=== PATIENT | male | born 1965 | race Hispanic/Latino ===

== ENCOUNTER 2022-05-17 16:27 | Inpatient (IN) | payer OTHER ==
[~2022-05-17] VITALS: Ht 167.6 cm; Wt 79.5 kg
[2022-05-17] MEDS ORDERED: FEXO60TA98 PO (17:23)
[2022-05-17] MEDS ORDERED: ACYC1CAP20 PO (17:23)
[2022-05-17] MEDS ORDERED: GABA-283 PO (17:23)
[2022-05-17] MEDS ORDERED: PRAZ2CAP PO (17:40)
[2022-05-17] MEDS ORDERED: CITA20TA6 PO (17:40)
[2022-05-17] MEDS ORDERED: SERT-141 PO (17:40)
[2022-05-17] MEDS ORDERED: WELLTAB40 PO (17:40)
[2022-05-17] MEDS ORDERED: ZOLP5TAB PO (17:40)
[2022-05-17] MEDS ORDERED: LORazepam 2 MG TAB PO PRN ×2 (18:25→20:05)
[2022-05-17 18:39] LABS: HEMATOCRIT 43.7 % (42.0-52.0); HEMOGLOBIN 15.1 g/dl (13.5-17.5); MEAN CORPUSCULAR HEMOGLOBIN 30.1 pg (27.0-33.0); MEAN CORPUSCULAR HGB CONC 34.6 g/dl (32.0-36.5); MEAN CORPUSCULAR VOLUME 87.2 fl (80.0-96.0); PLATELET COUNT, AUTOMATED 184 10^3/uL (150-450); RED BLOOD COUNT 5.01 10^6/uL (4.30-6.10); WHITE BLOOD COUNT 6.3 10^3/uL (4.0-10.0)
[2022-05-17 19:05] LABS: AMPHETAMINES LEVEL URINE NEGATIVE (NEGATIVE); BARBITURATES URINE NEGATIVE (NEGATIVE); BENZODIAZEPINES URINE NEGATIVE (NEGATIVE); COCAINE METABOLITE URINE NEGATIVE (NEGATIVE); METHADONE URINE NEGATIVE (NEGATIVE); OPIATES URINE NEGATIVE (NEGATIVE); PHENCYCLIDINE URINE NEGATIVE (NEGATIVE)
[2022-05-17] MEDS ORDERED: KETOROLAC 60MG 2ML VIAL IM ONE (19:05)
[2022-05-17 19:06] LABS: CANNABINOIDS URINE NEGATIVE (NEGATIVE)
[2022-05-17 19:09] LABS: ETHYL ALCOHOL (ETHANOL) 0.005 % (0.000-0.010)
[2022-05-17 19:11] LABS: ACETAMINOPHEN LEVEL < 2.0 UG/ML (10.0-20.0); SALICYLATE LEVEL < 3.0 MG/DL (<30)
[2022-05-17 19:15] LABS: ALBUMIN 4.4 G/DL (3.2-5.2); ALKALINE PHOSPHATASE 82 U/L (46-116); ALT/SGPT 33 U/L (7.0-40); AST/SGOT 37 U/L (<34); BILIRUBIN,DIRECT < 0.1 MG/DL (<0.4); BILIRUBIN,TOTAL 0.4 MG/DL (0.3-1.2); BLOOD UREA NITROGEN 22 MG/DL (9-23); CALCIUM LEVEL 9.3 MG/DL (8.5-10.1); CARBON DIOXIDE LEVEL 28 MMOL/L (20-31); CHLORIDE LEVEL 106 MMOL/L (98-107); CPK CREATINE PHOSPHOKINASE 410 U/L (46-171); GLOMERULAR FILTRATION RATE > 60.0 (>56); GLUCOSE, FASTING 96 MG/DL (60-100); POTASSIUM SERUM 4.3 MMOL/L (3.5-5.1); SODIUM LEVEL 140 MMOL/L (136-145); THYROID STIMULATING HORMONE 1.412 uIU/ML (0.55-4.78); TOTAL PROTEIN 6.9 G/DL (5.7-8.2)
[2022-05-17] MEDS ORDERED: ZOLO100T PO (19:56)
[2022-05-17] MEDS ORDERED: ALLE1TAB23 PO (19:56)
[2022-05-17] MEDS ORDERED: GABA-282 PO (19:56)
[2022-05-17] MEDS ORDERED: HOME MED LIST COMPLETE! XX SCH (20:00)
[2022-05-17] MEDS ORDERED: zolPIDEM TARTRATE 5 MG TAB PO PRN (20:05)
[2022-05-17] MEDS ORDERED: OLANZapine ORAL DISINTEGRATING TAB 5MG PO PRN (20:05)
[2022-05-17] MEDS ORDERED: NICOTINE 21MG/24HR 1 EA TRANSDERMAL TD PRN (20:05)
[2022-05-17] MEDS ORDERED: ACETAMINOPHEN TAB 650MG DOSE (2X325MG) PO PRN (20:05)
[2022-05-17] MEDS ORDERED: MOM 30ML SUSPENSION UDC PO PRN (20:05)
[2022-05-17] MEDS ORDERED: MAALOX 30 ML SUSP *UDC PO PRN (20:05)
[2022-05-17 20:13] LABS: RSV AMPLIFICATION NEGATIVE (NEGATIVE)
[2022-05-17 22:50] VITALS: BP 140/70
[2022-05-17] MEDS: GABAPENTIN 300 MG CAP PO SCH (23:12)
[2022-05-17] MEDS: PRAZOSIN 1 MG CAP PO SCH (23:12)
[2022-05-18] MEDS: GABAPENTIN 300 MG CAP PO SCH ×3 (08:39→21:08)
[2022-05-18] MEDS: CitaloPRAM (CeleXA) 20 MG TAB PO SCH (08:40)
[2022-05-18] MEDS: buPROPion **XL** TABLET 150MG (WELLBUTRIN XL) PO SCH (08:40)
[2022-05-18] MEDS ORDERED: FLUBLOK(EGG FREE)(QUAD)INFLUENZA VACC 0.5ML SYRINGE 18YRS & OLDER IM.IMMUN ONE (09:00)
[2022-05-18] MEDS ORDERED: SERTRALINE 100 MG TAB PO SCH (09:00)
[2022-05-18] MEDS: IBUPROFEN 400MG TAB PO PRN (15:07)
[2022-05-18 16:12] VITALS: BP 134/73
[2022-05-18] MEDS: PRAZOSIN 1 MG CAP PO SCH (21:08)
[2022-05-19 06:39] VITALS: BP 131/74
[2022-05-19] MEDS: CitaloPRAM (CeleXA) 20 MG TAB PO SCH (08:08)
[2022-05-19] MEDS: SERTRALINE HCL 50 MG TAB PO SCH (08:08)
[2022-05-19] MEDS: buPROPion **XL** TABLET 150MG (WELLBUTRIN XL) PO SCH (08:08)
[2022-05-19] MEDS: GABAPENTIN 300 MG CAP PO SCH ×3 (08:08→21:10)
[2022-05-19] MEDS: IBUPROFEN 400MG TAB PO PRN (13:24)
[2022-05-19 16:07] VITALS: BP 138/74
[2022-05-19] MEDS: PRAZOSIN 1 MG CAP PO SCH (21:10)
[2022-05-20 06:23] VITALS: BP 138/83
[2022-05-20] MEDS: SERTRALINE HCL 50 MG TAB PO SCH (08:11)
[2022-05-20] MEDS: GABAPENTIN 300 MG CAP PO SCH ×3 (08:12→20:43)
[2022-05-20] MEDS: buPROPion **XL** TABLET 150MG (WELLBUTRIN XL) PO SCH (08:12)
[2022-05-20] MEDS: CitaloPRAM (CeleXA) 20 MG TAB PO SCH (08:12)
[2022-05-20] MEDS ORDERED: PRAZ2CAP40 PO (11:25)
[2022-05-20] MEDS ORDERED: WELLTAB40 PO (11:25)
[2022-05-20] MEDS ORDERED: GABA-282 PO (11:25)
[2022-05-20] MEDS ORDERED: ZOLP5TAB PO (11:25)
[2022-05-20] MEDS ORDERED: SERT50TA29 PO (11:25)
[2022-05-20] MEDS: IBUPROFEN 400MG TAB PO PRN (12:56)
[2022-05-20 16:18] VITALS: BP 133/74
[2022-05-20 20:45] VITALS: BP 129/79
[2022-05-20] MEDS: PRAZOSIN 1 MG CAP PO SCH (20:45)
[2022-05-21 06:24] VITALS: BP 126/83
[2022-05-21] MEDS: GABAPENTIN 300 MG CAP PO SCH (07:59)
[2022-05-21] MEDS: SERTRALINE HCL 50 MG TAB PO SCH (07:59)
[2022-05-21] MEDS: buPROPion **XL** TABLET 150MG (WELLBUTRIN XL) PO SCH (08:00)
[2022-05-21] MEDS: IBUPROFEN 400MG TAB PO PRN (09:14)
[2022-05-22] MEDS ORDERED: ZOLO100T PO (13:25)
[2022-05-22] MEDS ORDERED: ZOLO50TA PO (13:25)
[2022-05-22] MEDS ORDERED: BUPR300T92 PO (13:25)
[2022-05-22] MEDS ORDERED: PRAZ2CAP PO (13:25)
[2022-05-22] MEDS ORDERED: GABA-282 PO (13:25)
== END 2022-05-21 10:27 | disposition home or self-care (01) | DRG 882 ==
LOC: M ED 16:27 → M ED INP 20:01 → M PSY 22:14
PROVIDERS: ADMIT Student in an Organized Health Care Education/Training Program; ATTEND Psychiatry & Neurology Psychiatry
DX: F43.22 Adjustment disorder with anxiety (principal); F33.1 Major depressive disorder, recurrent, moderate; R45.851 Suicidal ideations; F41.0 Panic disorder [episodic paroxysmal anxiety]; I10 Essential (primary) hypertension; F43.10 Post-traumatic stress disorder, unspecified; F17.200 Nicotine dependence, unspecified, uncomplicated; Z79.899 Other long term (current) drug therapy